=== PATIENT | male | born 1965 | race Caucasian/White ===

== ENCOUNTER 2016-09-20 10:27 | Emergency (ER) | payer BC ==
[~2016-09-20] VITALS: Ht 177.8 cm; Wt 90.0 kg
[2016-09-20 10:29] VITALS: BP 152/74; PULSE 65; RESP 17; TEMP 98.2; O2SAT 100
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
[2016-09-20] MEDS ORDERED: ORPHENADRINE INJ 60 MG/2 ML AMP IM ONE (12:00)
[2016-09-20] MEDS ORDERED: KETOROLAC TROMETHAMINE 60 MG/2 ML (IM) VIAL IM ONE (12:00)
[2016-09-20] MEDS ORDERED: ROBA500T PO (12:09)
[2016-09-20] MEDS ORDERED: IBUP800T23 PO (12:09)
== END 2016-09-20 13:38 | disposition home or self-care (01) ==
LOC: NEPB 10:27
DX: M54.31 Sciatica, right side (principal); Z72.0 Tobacco use; X50.1XXA Overexertion from prolonged static or awkward postures, initial encounter; Y93.I9 Activity, other involving external motion; Y92.9 Unspecified place or not applicable; Y99.9 Unspecified external cause status
CPT/HCPCS: 96372; 99282; J1885; J2360